=== PATIENT | female | born 1945 | race Caucasian/White ===

== ENCOUNTER 2017-05-20 15:50 | Day surgery (SDC) | payer MEDICARE, OTHER ==
[2017-05-20] MEDS ORDERED: SODIUM CHLORIDE 0.9% 1,000 ML IV ONE ×2 (16:25→20:02)
[2017-05-20] MEDS ORDERED: MORPHINE 10 MG/ML VIAL IVP STA (16:25)
--- NOTE | 2017-05-20 16:26 | ED Physician Documentation ---
PD HPI ABD PAIN - Stated complaint Stated Complaint: SIDE PX - Chief complaint Chief Complaint: Abd Pain - History obtained from History obtained from: Patient, Family - History of Present Illness Timing - onset: Yesterday (She had diffuse abdominal pain yesterday which this morning coalesced into the right lower quadrant associated with nausea but no vomiting and chills. She has had normal bowel movements. No history of abdominal surgery.) Review of Systems Ten Systems: 10 systems reviewed and negative Constitutional: reports: Chills. denies: Fever Throat: reports: Reviewed and negative Cardiac: denies: Chest pain / pressure, Palpitations Respiratory: denies: Dyspnea, Cough PD PAST MEDICAL HISTORY - Past Medical History Past Medical History: Yes Cardiovascular: Hypertension - Past Surgical History Past Surgical History: No - Present Medications Home Medications: Ambulatory Orders Medication Instructions Recorded Confirmed Amitriptyline [Elavil] 10 mg QPM 05/20/17 05/20/17 Telmisartan [Micardis] 0 mg DAILY 05/20/17 05/20/17 - Allergies Allergies/Adverse Reactions: Allergies Allergy/AdvReac Type Severity Reaction Status Date / Time No Known Drug Allergies Allergy Verified 05/20/17 18:28 - Living Situation Living Situation: reports: With spouse/s.o. - Social History Does the pt smoke?: No Does the pt drink ETOH?: No Does the pt have substance abuse?: No - Family History Family history: reports: Non contributory PD ED PE NORMAL - Vitals Vital signs reviewed: Yes - General General: Alert and oriented X 3, No acute distress - HEENT HEENT: Atraumatic, PERRL, EOMI, Pharynx benign - Neck Neck: Supple, no meningeal sign, No bony TTP - Cardiac Cardiac: No murmur, Other (Tachycardic) - Respiratory Respiratory: No respiratory distress, Clear bilaterally - Abdomen Abdomen: Other (Soft with normal bowel tones, focally tender in the right lower quadrant without guarding or rebound in contrast to the nurse's notes.) - Back Back: No CVA TTP, No spinal TTP - Derm Derm: Normal color, Warm and dry - Extremities Extremities: No edema, No calf tenderness / cord - Neuro Neuro: Alert and oriented X 3, Normal speech - Psych Psych: Normal mood, Normal affect Results - Vitals Vitals: Vital Signs - 24 hr 05/20/17 05/20/1718 15:56 18:15 19:15 Temperature 36.5 C Heart Rate 114 H 90 93 Respiratory 16 16 18 Rate Blood Pressure 131/79 H 127/76 127/76 O2 Saturation 97 95 94 Oxygen O2 Source Room air - Labs Labs: Laboratory Tests 05/20/17 05/20/17 05/20/17 16:20 16:20 16:20 WBC 10.2 RBC 3.72 L Hgb 12.2 Hct 35.7 L MCV 95.8 MCH 32.8 H MCHC 34.2 RDW 13.7 Plt Count 186 MPV 7.8 L Neut # 9.0 H Lymph # 0.7 L [place] # 0.3 Eos # 0.1 Baso # 0.1 Absolute Nucleated RBC 0.01 Nucleated RBC % 0.0 PT 12.6 INR 1.1 Sodium 134 L Potassium 3.8 Chloride 96 L Carbon Dioxide 28 Anion Gap 10.0 BUN 26 H Creatinine 1.1 H Estimated GFR (MDRD) 49 L Glucose 152 H Calcium 9.1 Total Bilirubin 1.0 AST 25 ALT 31 Alkaline Phosphatase 73 Total Protein 8.5 H Albumin 4.4 Globulin 4.1 Albumin/Globulin Ratio 1.1 Lipase 19 L Urine Color Urine Clarity Urine pH Ur Specific [place] Urine Protein Urine Glucose (UA) Urine Ketones Urine Occult Blood Urine Nitrite Urine Bilirubin Urine Urobilinogen Ur Leukocyte Esterase Ur Microscopic Review Urine Culture Comments 05/20/17 19:48 WBC RBC Hgb Hct MCV MCH MCHC RDW Plt Count MPV Neut # Lymph # [place] # Eos # Baso # Absolute Nucleated RBC Nucleated RBC % PT INR Sodium Potassium Chloride Carbon Dioxide Anion Gap BUN Creatinine Estimated GFR (MDRD) Glucose Calcium Total Bilirubin AST ALT Alkaline Phosphatase Total Protein Albumin Globulin Albumin/Globulin Ratio Lipase Urine Color YELLOW Urine Clarity CLEAR Urine pH 7.5 Ur Specific [place] 1.010 Urine Protein NEGATIVE Urine Glucose (UA) NEGATIVE Urine Ketones NEGATIVE Urine Occult Blood NEGATIVE Urine Nitrite NEGATIVE Urine Bilirubin NEGATIVE Urine Urobilinogen 0.2 (NORMAL) Ur Leukocyte Esterase NEGATIVE Ur Microscopic Review NOT INDICATED Urine Culture Comments NOT INDICATED - Rads (name of study) CT A/P Radiology: EMP read contemporaneously (Acute appendicitis) PD MEDICAL DECISION MAKING - ED course ED course: 72-year-old woman with history and physical examination concerning for appendicitis which is corroborated on CT. Spoke with Dr. Biswas at 6:24 PM who will review her scan and recommend Zosyn in the interim. Departure - Departure Disposition: ED Transfer to [facility] Clinical Impression: Appendicitis Qualifiers: Appendicitis type: acute appendicitis Acute appendicitis type: with localized peritonitis Qualified Code(s): K35.3 - Acute appendicitis with localized peritonitis Condition: Stable Discharge Date/Time: 05/20/17 20:01
[2017-05-20] MEDS ORDERED: IOPAMIDOL-300 100 ML VIAL ONE (16:34)
[2017-05-20 16:37] LABS: BASOPHILS # (AUTO) 0.1 10^3/uL (0.0-0.1); BASOPHILS % (AUTO) 0.7 %; EOSINOPHILS # (AUTO) 0.1 10^3/uL (0.0-0.7); EOSINOPHILS % (AUTO) 0.6 %; HGB - HEMOGLOBIN 12.2 g/dL (12.0-16.0); LYMPHOCYTES # (AUTO) 0.7 10^3/uL (1.5-3.5); LYMPHOCYTES % (AUTO) 7.2 %; MEAN CORPUSCULAR HEMOGLOBIN 32.8 pg (27.0-31.0); MEAN CORPUSCULAR HGB CONC 34.2 g/dL (32.0-36.0); MEAN CORPUSCULAR VOLUME 95.8 fL (81.0-99.0); MEAN PLATELET VOLUME 7.8 fL (7.9-10.8); MONOCYTES # (AUTO) 0.3 10^3/uL (0.0-1.0); MONOCYTES % (AUTO) 3.2 %; NEUTROPHILS % (AUTO) 88.3 %; PLT - PLATELET COUNT 186 10^3/uL (130-450); RED BLOOD COUNT 3.72 10^6/uL (4.20-5.40); RED CELL DISTRIBUTION WIDTH 13.7 % (12.0-15.0); WHITE BLOOD COUNT 10.2 x10^3/uL (4.8-10.8)
[2017-05-20 16:43] LABS: INR 1.1 (0.8-1.2); PT - PROTHROMBIN TIME 12.6 secs (9.9-12.6)
[2017-05-20 16:50] LABS: ALBUMIN 4.4 g/dL (3.2-5.5); ALBUMIN/GLOBULIN RATIO 1.1 (1.0-2.2); CALCIUM 9.1 mg/dL (8.5-10.3); CREATININE 1.1 mg/dL (0.4-1.0); TOTAL PROTEIN 8.5 g/dL (6.7-8.2)
[2017-05-20] MEDS ORDERED: IOPAMIDOL-300 100 ML VIAL IVP ONE (17:17)
--- NOTE | 2017-05-20 18:08 | CT Report ---
EXAM: CT ABDOMEN AND PELVIS EXAM DATE: 05/20/2017 05:18 PM. CLINICAL HISTORY: IV only, RLQ pain. COMPARISONS: None. TECHNIQUE: Routine helical CT imaging was performed through the abdomen and pelvis. IV contrast: 100 mL Isovue 300. Enteric contrast: No. Reconstructions: Coronal and sagittal. In accordance with CT protocol optimization, one or more of the following dose reduction techniques w ere utilized for this exam: automated exposure control, adjustment of mA and/or KV based on patient s ize, or use of iterative reconstructive technique. FINDINGS: Lung Bases: Dependent atelectasis. Liver: Enlarged fatty liver. No mass or intrahepatic bile duct dilation. Gallbladder/Bile Ducts: Gallstones. No inflammation. No dilated common bile duct. Spleen: Normal. Pancreas: Normal. Adrenal Glands: Normal. Kidneys: Normal. No masses or hydronephrosis. Peritoneal Cavity/Bowel: Abnormal dilated inflamed appendix with significant adjacent inflammation. N o appendicolith is noted. Nonloculated fluid noted in the right lower quadrant. The small bowel loops in the right lower quadrant are mildly inflamed. Diverticulosis. No CT findings concerning for acute diverticulitis, perforation, abscess or obstruction. No bulky adenopathy. Pelvic Organs: Secondary inflammation surrounding the right ovary due to the patient's known appendic itis. Otherwise, the uterus and adnexa are normal. Normal bladder. Vasculature: No aneurysms or other significant abnormality. Bones: Moderate L4-L5 degenerative disk disease. DISH is noted in lower thoracic spine. Other: None. IMPRESSION: 1. Acute appendicitis without perforation, obstruction or abscess. 2. Fatty liver. Liver enlargement noted. 3. Cholelithiasis. No CT findings concerning for acute cholecystitis. [facility] Referring Provider Line: [phone] SITE ID: [id number]
[2017-05-20] MEDS ORDERED: PIPERACILLIN/TAZOBACTAM 3.375 GM in SODIUM CHLORIDE 0.9% MINIBAG 100 ML IV STA (18:24)
[2017-05-20 18:38] VITALS: BP 127/76
--- NOTE | 2017-05-20 19:36 | HISTORY & PHYSICAL EXAMINATION ---
Chief Complaint - Chief Complaint Chief Complaint: Abdominal pain Abdominal Pain HPI - History of Present Illness HPI Comment/Other: This is a 72-year-old female who presents to the emergency department this evening with abdominal pain which started yesterday morning. She states that it was right lower quadrant in nature and became progressively worse throughout the day yesterday and eventually she came to the emergency department today. This has been associated with nausea but no vomiting. She denies fevers or chills. Upon workup in the emergency department she was noted to have a normal white blood cell count with a CT scan which demonstrates acute appendicitis with out any evidence of an associated phlegmon or abscess.Her only medical comorbidity is high blood pressure for which she takes Micardis. She denies any prior history of heart attacks or strokes.She denies any prior abdominal surgery in the past. PMH/PSH - Past Medical History Cardiovascular: positive: Hypertension Social & Family Hx - Social History Does the pt smoke?: No Smoking Status: Never smoker Does the pt drink ETOH?: No Does the pt have substance abuse?: No Meds/Allgy - Home Medications Home Medications: Ambulatory Orders Medication Instructions Recorded Confirmed Amitriptyline [Elavil] 10 mg QPM 05/20/17 05/20/17 Telmisartan [Micardis] 0 mg DAILY 05/20/17 05/20/17 - Allergies Allergies/Adverse Reactions: Allergies Allergy/AdvReac Type Severity Reaction Status Date / Time No Known Drug Allergies Allergy Verified 05/20/17 18:28 Exam - Vital Signs Reviewed Vital Signs: Yes Vital Signs: Vital Signs x48h Temp Pulse Resp BP Pulse Ox 05/20/17 19:15 93 18 127/76 94 05/20/17 18:15 90 16 127/76 95 05/20/17 15:56 36.5 C 114 H 16 131/79 H 97 - Physical Exam General Appearance: positive: No acute distress Respiratory: positive: No respiratory distress Cardiovascular: positive: Regular rate & rhythm Abdomen: positive: Other (Softly distended with tenderness to light palpation specifically in the right lower quadrant) Extremities: positive: No pedal edema Neurologic/Psychiatric: positive: Oriented x3 Results - Lab Results Fish Bones: 05/20/17 16:20 05/20/17 16:20 Other Lab Results: Lab Results x24hrs 05/20/17 05/20/17 05/20/17 Range/Units 16:20 16:20 16:20 WBC 10.2 (4.8-10.8) x10^3/uL RBC 3.72 L (4.20-5.40) 10^6/uL Hgb 12.2 (12.0-16.0) g/dL Hct 35.7 L (37.0-47.0) % MCV 95.8 (81.0-99.0) fL MCH 32.8 H (27.0-31.0) pg MCHC 34.2 (32.0-36.0) g/dL RDW 13.7 (12.0-15.0) % Plt Count 186 (130-450) 10^3/uL MPV 7.8 L (7.9-10.8) fL Neut # 9.0 H (1.5-6.6) 10^3/uL Lymph # 0.7 L (1.5-3.5) 10^3/uL [place] # 0.3 (0.0-1.0) 10^3/uL Eos # 0.1 (0.0-0.7) 10^3/uL Baso # 0.1 (0.0-0.1) 10^3/uL Absolute Nucleated RBC 0.01 x10^3/uL Nucleated RBC % 0.0 /100WBC PT 12.6 (9.9-12.6) secs INR 1.1 (0.8-1.2) Sodium 134 L (135-145) mmol/L Potassium 3.8 (3.5-5.0) mmol/L Chloride 96 L (101-111) mmol/L Carbon Dioxide 28 (21-32) mmol/L Anion Gap 10.0 (6-13) BUN 26 H (6-20) mg/dL Creatinine 1.1 H (0.4-1.0) mg/dL Estimated GFR (MDRD) 49 L (>89) Glucose 152 H (70-100) mg/dL Calcium 9.1 (8.5-10.3) mg/dL Total Bilirubin 1.0 (0.2-1.0) mg/dL AST 25 (10-42) IU/L ALT 31 (10-60) IU/L Alkaline Phosphatase 73 (42-121) IU/L Total Protein 8.5 H (6.7-8.2) g/dL Albumin 4.4 (3.2-5.5) g/dL Globulin 4.1 (2.1-4.2) g/dL Albumin/Globulin Ratio 1.1 (1.0-2.2) Lipase 19 L (22-51) U/L Impression/Plan - Problem List Problem List: 72-year-old female with acute appendicitis The patient will be taken to the operating room for laparoscopic appendectomy possible open. I did explain to the patient that her CT scan does show significant inflammation around the appendix and the likelihood of converting to an open procedure is at least 30%. The procedure was described to the patient in detail including potential risks involved including but not limited to bleeding, infection and damage to associated intra-abdominal structures. I also indicated that nonoperative options such as antibiotics are not the standard of care but are an option if she is unwilling to undergo surgery. She agrees to proceed with surgery.
[2017-05-20 19:56] LABS: BILIRUBIN,URINE NEGATIVE (NEGATIVE); GLUCOSE, URINE (UA) NEGATIVE (NEGATIVE); KETONES,URINE (UA) NEGATIVE (NEGATIVE); LEUKOCYTE ESTERASE, URINE NEGATIVE (NEGATIVE); NITRITE,URINE NEGATIVE (NEGATIVE); OCCULT BLOOD,URINE NEGATIVE (NEGATIVE); PH,URINE 7.5 PH (5.0-7.5); PROTEIN,URINE NEGATIVE (NEGATIVE); UROBILINOGEN,URINE 0.2 (NORMAL) E.U./dL (NORMAL)
[2017-05-20 19:59] LABS: CLARITY,URINE CLEAR (CLEAR)
[2017-05-20] MEDS ORDERED: BUPIVACAINE 0.5% PF 30 ML VIAL INFIL ONE (20:29)
[2017-05-20] MEDS ORDERED: LACTATED RINGERS 1,000 ML IV ONE (20:30)
[2017-05-20] MEDS ORDERED: KETOROLAC 30 MG/ML VIAL IVP ONE (21:27)
[2017-05-20] MEDS ORDERED: ROCURONIUM 50 MG/5 ML VIAL IVP ONE (21:27)
[2017-05-20] MEDS ORDERED: ONDANSETRON 4 MG/2 ML VIAL IVP ONE (21:27)
[2017-05-20] MEDS ORDERED: ePHEDrine 50 MG/ML VIAL IVP ONE (21:27)
[2017-05-20] MEDS ORDERED: PROPOFOL 200 MG/20 ML VIAL IVP ONE (21:27)
[2017-05-20] MEDS ORDERED: GLYCOPYRROLATE 1 MG/5 ML VIAL IVP ONE (21:27)
[2017-05-20] MEDS ORDERED: LIDOCAINE-MPF 2% 5 ML VIAL IM ONE (21:27)
[2017-05-20] MEDS ORDERED: NEOSTIGMINE 1 MG/1 ML 10 ML MDV IVP ONE (21:27)
[2017-05-20] MEDS ORDERED: fentaNYL 100 MCG/2 ML VIAL IVP ONE (21:27)
[2017-05-21] MEDS ORDERED: LACTATED RINGERS 1,000 ML IV ONE (00:10)
[2017-05-21] MEDS ORDERED: ONDANSETRON 4 MG/2 ML VIAL IVP PRN (07:27)
[2017-05-21] MEDS ORDERED: SODIUM CHLORIDE FLUSH 0.9% 10 ML SYRINGE IVP PRN (07:28)
[2017-05-21] MEDS ORDERED: MORPHINE 2 MG/ML CARPUJECT IVP PRN (07:28)
[2017-05-21] MEDS: oxyCOD/ACETAMIN 5 MG/325 MG TABLET PO PRN ×2 (07:58→09:03)
[2017-05-21] MEDS ORDERED: LACTATED RINGERS 1,000 ML IV SCH (08:00)
--- NOTE | 2017-05-21 09:18 | OPERATIVE REPORT ---
Operative Report - General Procedure Date: 05/20/17 Pre-Op Diagnosis: acute appendicitis Procedure Performed: laparoscopic appendectomy Post Op Diagnosis: same - Procedure Note Primary Surgeon: Zulay Pathology: Appendix - Other Other Information/Narrative: After obtaining informed consent for the patient she was brought into the operating room position on the operating table in the supine position taking noted pressure points.She was administered perioperative antibiotics in the form of Ancef as she had recently in received Zosyn in the emergency department. SCD boots were applied. She was prepped and draped in the usual sterile fashion and a timeout was taken according to protocol. A 1 cm incision was created below the umbilicus in the midline and deepened down to the umbilical stalk. This was grasped and elevated. The Veress needle was inserted and the abdominal cavity insufflated. A 5 mm incision was created in the left lateral abdomen and the abdominal cavity entered using a 5 mm Optiview trocar. The Veress needle was then exchanged for a 12 mm port. An additional 5 mm port was placed in the suprapubic midline. Patient was positioned in Trendelenburg with the right side elevated. Small bowel loops were noted to be stuck to the appendix and cecum. These were gently swept medially. The inflamed appendix was visualized grasped and elevated. The appendix was noted to be markedly inflamed with areas of spotty necrosis, however, carter perforation did not appear to have occurred.The mesoappendix was divided using the LigaSure at its base. The appendix was subsequently amputated using a 45 mm VANGIE stapling device with a white load. The appendix was placed in a specimen bag and removed. There was some purulent appearing fluid in the patient's right abdominal cavity which was suctioned. The staple line was inspected and was noted to be intact. The umbilical fascial incision was then closed using the Keegan Thibodeaux device and a 0 Vicryl suture. The abdominal cavity was allowed to desufflate all ports were removed. The skin incisions were closed with 4-0 Monocryl. Mastisol Steri-Strips Telfa and Tegaderm were applied. The patient was extubated and taken to the recovery room in stable condition. Specimens: Appendix Estimated blood loss: 5 cc Complications: None
== END 2017-05-21 10:45 | disposition home or self-care (01) ==
LOC: ED 15:50 → SDS 19:48 → OBS 20:58 → SDS 05-21 10:45
PROVIDERS: ATTEND Surgery
PROC: 0DTJ4ZZ Resection of Appendix, Percutaneous Endoscopic Approach (ICD-10-PCS; principal; 2017-05-20 19:45)
DX: K35.80 Unspecified acute appendicitis (principal); I10 Essential (primary) hypertension
CPT/HCPCS: 36415; 44970; 74177; 80053; 81003; 83690; 85025; 85610; 96365; 96375; 99283; 99284; A9270; J7120; Q9967; 81001; 87086

== ENCOUNTER 2020-05-10 07:00 | Outpatient (CLI) | payer MEDICARE, OTHER ==
[2020-05-10 08:55] LABS: BASOPHILS % (AUTO) 0.2 %; EOSINOPHILS # (AUTO) 0.2 10^3/uL (0.0-0.7); EOSINOPHILS % (AUTO) 4.1 %; HGB - HEMOGLOBIN 12.9 g/dL (12.0-16.0); LYMPHOCYTES # (AUTO) 1.4 10^3/uL (1.5-3.5); MEAN CORPUSCULAR HEMOGLOBIN 33.4 pg (27.0-31.0); MEAN CORPUSCULAR HGB CONC 33.2 g/dL (32.0-36.0); MEAN CORPUSCULAR VOLUME 100.5 fL (81.0-99.0); MEAN PLATELET VOLUME 9.6 fL (7.9-10.8); MONOCYTES # (AUTO) 0.3 10^3/uL (0.0-1.0); MONOCYTES % (AUTO) 7.1 %; NEUTROPHILS # (AUTO) 2.5 10^3/uL (1.5-6.6); NEUTROPHILS % (AUTO) 56.1 %; PLT - PLATELET COUNT 189 10^3/uL (130-450); RED BLOOD COUNT 3.86 10^6/uL (4.20-5.40); RED CELL DISTRIBUTION WIDTH 12.4 % (12.0-15.0); WHITE BLOOD COUNT 4.4 x10^3/uL (4.8-10.8)
[2020-05-10 09:13] LABS: ALBUMIN 4.8 g/dL (3.2-5.5); ALBUMIN/GLOBULIN RATIO 1.4 (1.0-2.2); ALKALINE PHOSPHATASE 90 IU/L (42-121); ALT ALANINE AMINOTRANSFERASE 44 IU/L (10-60); AST ASPARTATE AMINOTRANSFERASE 34 IU/L (10-42); BILIRUBIN,TOTAL 0.5 mg/dL (0.2-1.0); BUN - BLOOD UREA NITROGEN 17 mg/dL (6-20); CALCIUM 9.8 mg/dL (8.5-10.3); CARBON DIOXIDE - CO2 25 mmol/L (21-32); CHLORIDE 106 mmol/L (101-111); CHOL/HDL RATIO 4.4 (<4.4); CHOLESTEROL 247 mg/dL; CREATININE 0.8 mg/dL (0.4-1.0); GLUCOSE 109 mg/dL (70-100); HDL CHOLESTEROL 56 mg/dL; LDL CHOLESTEROL,CALCULATED 164 mg/dL; LDL/HDL RATIO 2.9 (<4.4); TOTAL PROTEIN 8.2 g/dL (6.7-8.2); VLDL CHOLESTEROL 27 mg/dL
[2020-05-10 11:52] LABS: HEMOGLOBIN A1c% 5.4 % (4.27-6.07)
[2020-05-11 12:52] LABS: HEPATITIS C ANTIBODY NON-REACTIVE (NON-REACTIVE)
== END 2020-05-10 23:59 | disposition home or self-care (01) ==
LOC: LAB 07:00
PROVIDERS: ATTEND Internal Medicine
DX: E78.5 Hyperlipidemia, unspecified (principal); Z11.59 Encounter for screening for other viral diseases; R73.9 Hyperglycemia, unspecified; Z79.899 Other long term (current) drug therapy
CPT/HCPCS: 36415; 80053; 80061; 83036; 83721; 84443; 85025; 86803

== ENCOUNTER 2021-07-04 16:58 | Outpatient (CLI) | payer MEDICARE, OTHER | END 2021-07-04 16:59 | disposition home or self-care (01) | LOC: LAB.N 16:58 | PROVIDERS: ATTEND Internal Medicine | DX: E02 Subclinical iodine-deficiency hypothyroidism (principal) | CPT/HCPCS: 36415; 84439 ==

== ENCOUNTER 2022-06-09 14:54 | Outpatient (CLI) | payer MEDICARE, OTHER ==
--- NOTE | 2022-06-09 16:31 | XRAY Report ---
PROCEDURE: Knee 4 View BILAT INDICATIONS: BILAT KNEE PAIN TECHNIQUE: 4 views of the right and left knee(s) were acquired. COMPARISON: None. FINDINGS: Bones: No fractures or dislocations. No suspicious bony lesions. Severe bilateral knee medial erwin rtment osteoarthritic degenerative changes including near complete loss of joint space, osseous hyper trophy and subchondral sclerosis. Moderate bilateral knee lateral and patellofemoral compartment oste oarthritis with mild joint space narrowing and marginal osteophytosis. Soft tissues: Small bilateral knee joint effusions. No suspicious soft tissue calcifications. IMPRESSION: Bilateral knee tricompartmental osteoarthritis as described above. Reviewed by: Belle Stevenson MD, PhD on 06/09/2022 4:30 PM PST Approved by: Belle Stevenson MD, PhD on 06/09/2022 4:30 PM PST Station ID: [id number]
== END 2022-06-09 14:56 | disposition home or self-care (01) ==
LOC: DI.WOS 14:54
PROVIDERS: ATTEND Physician Assistant Surgical
DX: M17.0 Bilateral primary osteoarthritis of knee (principal)

== ENCOUNTER 2023-02-16 08:00 | Outpatient (CLI) | payer MEDICARE, OTHER ==
--- NOTE | 2023-02-16 16:19 | XRAY Report ---
PROCEDURE: Knee 4 View LT INDICATIONS: LEFT TKA FOLLOWUP TECHNIQUE: 4 views of the knee(s) were acquired. COMPARISON: 01/06/2023. FINDINGS: Bones: Expected appearance of total left knee arthroplasty. No evidence of hardware failure or loose john. No fractures or dislocations. No suspicious bony lesions. Soft tissues: No knee joint effusion. No suspicious soft tissue calcifications or masses. IMPRESSION: Expected appearance of total left knee arthroplasty. Reviewed by: Elver Turner MD on 02/16/2023 4:17 PM PST Approved by: Elver Turner MD on 02/16/2023 4:17 PM PST Station ID: [id number]
== END 2023-02-16 23:59 | disposition home or self-care (01) ==
LOC: DI.WOS 08:00
PROVIDERS: ATTEND Orthopaedic Surgery
DX: Z09 Encounter for follow-up examination after completed treatment for conditions other than malignant neoplasm (principal); Z96.652 Presence of left artificial knee joint

== ENCOUNTER 2023-10-14 09:39 | Outpatient (CLI) | payer MEDICARE, OTHER ==
[2023-10-14 14:45] LABS: BASOPHILS % (AUTO) 0.5 %; EOSINOPHILS # (AUTO) 0.3 10^3/uL (0.0-0.7); EOSINOPHILS % (AUTO) 7.8 %; HCT - HEMATOCRIT 39.7 % (37.0-47.0); HGB - HEMOGLOBIN 12.5 g/dL (12.0-16.0); LYMPHOCYTES # (AUTO) 1.2 10^3/uL (1.5-3.5); LYMPHOCYTES % (AUTO) 30.2 %; MEAN CORPUSCULAR HEMOGLOBIN 29.8 pg (27.0-31.0); MEAN CORPUSCULAR HGB CONC 31.5 g/dL (32.0-36.0); MEAN CORPUSCULAR VOLUME 94.7 fL (81.0-99.0); MEAN PLATELET VOLUME 10.3 fL (7.9-10.8); MONOCYTES # (AUTO) 0.2 10^3/uL (0.0-1.0); MONOCYTES % (AUTO) 6.3 %; NEUTROPHILS # (AUTO) 2.1 10^3/uL (1.5-6.6); NEUTROPHILS % (AUTO) 54.9 %; PLT - PLATELET COUNT 234 10^3/uL (130-450); RED BLOOD COUNT 4.19 10^6/uL (4.20-5.40); WHITE BLOOD COUNT 3.8 x10^3/uL (4.8-10.8)
[2023-10-14 15:03] LABS: ALBUMIN 4.4 g/dL (3.2-5.5); ALBUMIN/GLOBULIN RATIO 1.4 (1.0-2.2); ALKALINE PHOSPHATASE 96 IU/L (42-121); ALT ALANINE AMINOTRANSFERASE 23 IU/L (10-60); AST ASPARTATE AMINOTRANSFERASE 25 IU/L (10-42); BILIRUBIN,TOTAL 0.5 mg/dL (0.2-1.0); BUN - BLOOD UREA NITROGEN 22 mg/dL (6-20); CALCIUM 9.7 mg/dL (8.5-10.3); CARBON DIOXIDE - CO2 27 mmol/L (21-32); CHLORIDE 106 mmol/L (101-111); CHOL/HDL RATIO 4.3 (<4.4); CHOLESTEROL 195 mg/dL; CREATININE 0.8 mg/dL (0.6-1.3); GFR - MDRD 70 (>89); GLUCOSE 112 mg/dL (74-104); HDL CHOLESTEROL 45 mg/dL; LDL CHOLESTEROL,CALCULATED 117 mg/dL; LDL/HDL RATIO 2.6 (<4.4); POTASSIUM 4.2 mmol/L (3.5-4.5); SODIUM 139 mmol/L (135-145); TOTAL PROTEIN 7.5 g/dL (6.4-8.9); TRIGLYCERIDES 163 mg/dL (48-352); VLDL CHOLESTEROL 33 mg/dL
[2023-10-14 15:19] LABS: THYROID STIMULATING HORMONE 4.46 uIU/mL (0.34-5.60)
[2023-10-15 11:41] LABS: ESTIMATED AVERAGE GLUCOSE 105 mg/dL (70-100); HEMOGLOBIN A1c% 5.3 % (4.27-6.07)
== END 2023-10-14 09:40 | disposition home or self-care (01) ==
LOC: LAB.N 09:39
PROVIDERS: ATTEND Family Medicine
DX: E78.5 Hyperlipidemia, unspecified (principal); R53.83 Other fatigue; R73.9 Hyperglycemia, unspecified; I10 Essential (primary) hypertension
CPT/HCPCS: 36415; 80053; 80061; 83036; 83721; 84443; 85025